=== PATIENT | female | born 1980 | race African-American/Black ===

== ENCOUNTER 2017-04-03 13:21 | Day surgery (SDC) | payer OTHER ==
[2017-04-03] MEDS ORDERED: PROPOFOL 200 MG/20 ML VIAL As Ordered ×2 (13:40)
[2017-04-03] MEDS ORDERED: LIDOCAINE 2% INJ 100 MG/5 ML SDV (FOR ANES.) As Ordered (13:41)
[2017-04-03] MEDS: NS 1,000 ML IV (13:45)
[2017-04-03] MEDS ORDERED: fentaNYL 100 MCG/2 ML INJECTION (J3010) As Ordered (14:29)
== END 2017-04-03 16:15 | disposition home or self-care (01) ==
LOC: M OPP 13:21
DX: K29.70 Gastritis, unspecified, without bleeding (principal); R10.13 Epigastric pain; K92.1 Melena
CPT/HCPCS: 43239